=== PATIENT | female | born 1970 | race Caucasian/White ===

== ENCOUNTER → 2016-03-22 | Outpatient (CLI) | payer MEDICAID ==
--- NOTE | 2016-03-22 14:42 | MA ---
Bilateral Screening Digital Mammograms with iCAD Clinical Indications: Routine screening mammograms. Technique: Standard digital cephalocaudal and mediolateral oblique projections were obtained. This examination was processed by the iCAD computer-aided detection system. Comparison: None. Breast Parenchymal Density:B, scattered densities Findings: There are no masses, no suspicious calcifications, and no secondary signs of malignancy. Impression: Negative, BIRADS 1. Recommendation: Routine screening mammograms in one year. The patients information is entered into a reminder system with a target due date for her next mammog arjun. Negative mammography should not preclude additional workup of a clinically suspicious finding.
== END ==
LOC: BRMIMAGING 10:53
DX: Z12.31 Encounter for screening mammogram for malignant neoplasm of breast (principal)
CPT/HCPCS: G0202